=== PATIENT | female | born 1955 | race Caucasian/White ===

== ENCOUNTER → 2021-07-13 | Outpatient (CLI) | payer MEDICARE, OTHER ==
--- NOTE | 2021-07-13 15:38 | REPMRS ---
Patient History The patient states she has not had a clinical breast exam in over a year. Family history of prostate cancer at age 50 or over in father. Benign excisional biopsy of the right breast, 2004. 30 lb intentional weight loss. Moderna vaccine 12/01/20 left arm. 12/30/20 left arm. Patient states no breast complaints today. Patient has signed MRS History Sheet. Digital Woman Screen Mammo: July 13, 2021 - Exam #: [id number] Bilateral CC and MLO view(s) were taken. Technologist: RT Miguel Ángel Prior study comparison: February 14, 2014, bilateral bilat screen digital mammo, performed at [facility] ([facility]). January 29, 2013, bilateral bilat screen digital mammo, performed at [facility] ([facility]). FINDINGS: There are scattered fibroglandular densities. Screening. Digital screening (2D) mammography was performed bilaterally in the CC and MLO projections. Additionally, breast tomosynthesis (3D mammography) was performed bilaterally in the CC and MLO projections. Todays exam was compared to the prior exam/exams. By history, the patient has no complaints of a palpable breast abnormality or other significant breast complaints. The breasts are unchanged in size and shape. There are no jalen-soft tissue densities or spiculated masses. There is no internal architectural distortion.Once again, stable benign appearing calcifications are seen. There are no suspicious jalen-calcific clusters. Skin thickening or nipple retraction is not present. IMPRESSION: BI-RADS Category 2- Benign Findings. There is no evidence of malignant alteration of the breasts. Followup examination recommended in one year. The Volpara volumetric breast density category is B, there are scattered areas of fibroglandular densities. This mammogram was read with the assistance [facility],an FDA approved computer aided detection system for mammography. The Volpara volumetric breast density category is B, there are scattered areas of fibroglandular densities. Negative x-ray reports should not delay surgical consultation if a dominant or clinically suspicious mass is present. Not all breast cancers can be identified by mammography. Therefore, we recommend that you continue to perform regular breast self-examination and physical examination and then promptly contact your physician of any concerns or changes. Adenosis and dense breasts may obscure an underlying neoplasm. Assessment: BI-RADS/ACR category 2 mammogram. Benign Findings. Recommendation Routine screening mammogram of both breasts in 1 year. Electronically Signed By: Otoniel Zhou DO 07/13/21 [id number]
--- NOTE | 2021-07-13 15:58 | DEXAMM ---
INDICATION: SCREENING FOR OSTEOPOROSIS. COMPARISON: January 28, 2019. TECHNIQUE: Bone density was measured using dual-energy x-ray absorptionmetry (DEXA). FINDINGS: AP SPINE L1-L4 BMD 1.066 g/cm2 Young Adult T-Score -1.0 Age Matched Z-Score 0.7. LT FEMUR, TOTAL BMD 0.991 g/cm2 Young Adult T-Score -0.1 Age Matched Z-Score 1.2. LT NECK BMD 0.890 g/cm2 Young Adult T-Score -1.1 Age Matched Z-Score 0.5. RT FEMUR, TOTAL BMD 0.924 g/cm2 Young Adult T-Score -0.7 Age Matched Z-Score 0.6. RT NECK BMD 0.892 g/cm2 Young Adult T-Score -1.0 Age Matched Z-Score 0.5. IMPRESSION: There is low bone density of the spine. There is low bone density of the left hip. There is low bone density of the right hip. The density of the spine has increased 5.8% since the initial exam on August 27, 2007. The density of the spine increased 8.6% since most recent exam on January 28, 2019. The density of the left hip has decreased 10.2% since initial exam on August 27, 2007. The density of the left hip has decreased 4.0% since most recent exam on January 28, 2019. The density of the right hip has decreased 3.9% since the initial exam on August 17, 2007. The density of the right hip has decreased 2.2% since the most recent exam on January 28, 2019. FOLLOW-UP: Recommendation for the next bone density exam: 2 years. <Electronically signed by Henry Cisneros > 07/13/21 [id number]
== END ==
LOC: M WHC 14:13
PROVIDERS: ATTEND Registered Nurse
DX: Z12.31 Encounter for screening mammogram for malignant neoplasm of breast (principal); M81.0 Age-related osteoporosis without current pathological fracture

== ENCOUNTER 2022-07-31 08:42 | Emergency (ER) | payer MEDICARE, OTHER ==
[2022-07-31] MEDS ORDERED: ERGO500029 PO (08:54)
[2022-07-31] MEDS ORDERED: LISI10TA24 PO (08:54)
[2022-07-31] MEDS ORDERED: MELO7.5T35 PO (11:13)
[2022-07-31 11:21] VITALS: BP 165/77
== END 2022-07-31 11:22 | disposition home or self-care (01) ==
LOC: M ED 08:42
DX: M17.11 Unilateral primary osteoarthritis, right knee (principal); M25.461 Effusion, right knee; I10 Essential (primary) hypertension; E55.9 Vitamin D deficiency, unspecified; Z79.899 Other long term (current) drug therapy

== ENCOUNTER → 2022-09-22 | Outpatient (CLI) | payer MEDICARE, OTHER ==
[~2022-09-22] MED LIST: ERGO500029 PO; LISI10TA24 PO; MELO7.5T35 PO
== END ==
LOC: M WHC 08:14
PROVIDERS: ATTEND Registered Nurse
DX: Z12.31 Encounter for screening mammogram for malignant neoplasm of breast (principal)

== ENCOUNTER → 2022-11-13 | Outpatient (CLI) | payer MEDICARE, OTHER | LOC: M LABSMTC 10:45 | PROVIDERS: ATTEND Anesthesiology | DX: Z01.812 Encounter for preprocedural laboratory examination (principal); Z11.52 Encounter for screening for COVID-19 ==

== ENCOUNTER 2022-11-17 09:53 | Day surgery (SDC) | payer MEDICARE, OTHER ==
[~2022-11-17] VITALS: Ht 154.9 cm; Wt 113.3 kg
[~2022-11-17 09:53] MED LIST changes: +NS 1,000 ML IV ONE
[2022-11-17] MEDS ORDERED: LIDOCAINE 2% 100MG/5ML SDV (FOR ANES.) As Ordered ONE (11:37)
[2022-11-17] MEDS ORDERED: propofoL 200 MG/20 ML VIAL As Ordered ONE (11:37)
[2022-11-17 12:20] VITALS: BP 117/68
== END 2022-11-17 12:29 | disposition home or self-care (01) ==
LOC: M OPP 09:53
PROVIDERS: ATTEND Surgery
DX: Z12.11 Encounter for screening for malignant neoplasm of colon (principal); Z86.010 Personal history of colon polyps; Z79.899 Other long term (current) drug therapy; I10 Essential (primary) hypertension

== ENCOUNTER → 2023-09-26 | Outpatient (CLI) | payer MEDICARE, OTHER ==
[~2023-09-26] MED LIST changes: -NS 1,000 ML IV ONE
== END ==
LOC: M WHC 07:49
PROVIDERS: ATTEND Internal Medicine
DX: Z12.31 Encounter for screening mammogram for malignant neoplasm of breast (principal)

== ENCOUNTER → 2024-10-01 | Outpatient (CLI) | payer MEDICARE, OTHER | LOC: M WHC 07:55 | PROVIDERS: ATTEND Internal Medicine | DX: Z12.31 Encounter for screening mammogram for malignant neoplasm of breast (principal) ==

== ENCOUNTER → 2025-10-02 | Outpatient (CLI) | payer MEDICARE, OTHER | LOC: M WHC 07:39 | PROVIDERS: ATTEND Internal Medicine | DX: Z12.31 Encounter for screening mammogram for malignant neoplasm of breast (principal); R92.313 Mammographic fatty tissue density, bilateral breasts ==